=== PATIENT | male | born 1990 | race Caucasian/White ===

== ENCOUNTER → 2021-12-02 | Day surgery (SDC) | payer OTHER ==
[~2021-12-02] VITALS: Ht 180.3 cm; Wt 59.0 kg
[~2021-12-02] MED LIST: AMOXICILLIN500 MG PO; CLINDAMYCIN 15150 MG PO; MOTRIN600 MG PO; PERCOCET 5-3251 EACH PO
== END | disposition home or self-care (01) ==
LOC: FAS 09:58
DX: K02.9 Dental caries, unspecified (principal); K04.7 Periapical abscess without sinus; F17.200 Nicotine dependence, unspecified, uncomplicated; Z88.5 Allergy status to narcotic agent; F12.90 Cannabis use, unspecified, uncomplicated
CPT/HCPCS: D7140; D7210; D7310; J1100; J1170; J1885; J2405; J2704; J7120